=== PATIENT | female | born 1950 | race Caucasian/White ===

== ENCOUNTER 2018-05-12 05:19 | Inpatient (IN) ==
[2018-05-12] MEDS ORDERED: Dexamethasone Inj 20 MG/5 ML Vial IV.PUSH ONE (06:06)
[2018-05-12] MEDS ORDERED: Chlorhexidine 4% Topical 120 APPLIC/120 ML Bottle TOPICAL SCH (06:15)
[2018-05-12] MEDS ORDERED: Clindamycin 900 mg/NS Premix 900 MG/50 ML PIGGYBACK IV.SIG SCH (06:15)
[2018-05-12] MEDS ORDERED: Metoprolol Tartrate 25 MG Tablet PO ONE (06:15)
[2018-05-12] MEDS ORDERED: Chlorhexidine Gluconate 2% 1 Pack (2 Cloths) TOPICAL ONE (06:15)
[2018-05-12] MEDS ORDERED: Sodium Chlor 0.9% Inj 500 ML IV.CONT ONE (06:15)
[2018-05-12] MEDS ORDERED: Sodium Chlor 0.9% Inj 73.07 ML, Ropivacaine 0.5% PF Inj 24.63 ML, Ketorolac Inj 30 MG, ... P-ARTICULR SCH ×5 (06:15)
[2018-05-12] MEDS ORDERED: SODIUM CHLOR 0.9% IV.SIG SCH (06:30)
[2018-05-12] MEDS ORDERED: TRANEXAMIC ACID IV.SIG SCH (06:30)
[2018-05-12] MEDS ORDERED: Vancomycin Inj 1,000 MG in Sodium Chlor 0.9% Inj 250 ML IV.SIG SCH (07:00)
[2018-05-12] MEDS ORDERED: fentaNYL Citrate Inj 100 MCG/2 ML Ampul ONE ×3 (08:44→10:58)
--- NOTE | 2018-05-12 10:27 | P.OP ---
- Preoperative Diagnosis (1) Osteoarthritis of left knee - Postoperative Diagnosis (1) Osteoarthritis of left knee Date of procedure: 05/12/18 Procedure: Left total knee arthroplasty [facility] Surgeon: Naeem Garcia MD Industrial Sales Representative: BATOOL Vargas The surgical procedure was assisted by my Advanced Registered Nurse Practitioner. My UNPAID INTERN presence was necessary throughout this case for the manipulation and positioning of the surgical extremity. My UNPAID INTERN was assisting me throughout the duration of this procedure. The skill set of an Advance Registered Nurse Practitioner was medically necessary to complete this procedure. During the surgical case, the surgical dental assistant was working at the back table and the Advance Registered Nurse Practitioner was directly assisting me. Operation and Findings: IMPLANTS: DePuy Attune: Patella: size 32. Femur, posterior stabilized size 6. Tibia, rotating platform size 5. Tibial insert, rotating platform, posterior stabilized size 7 mm thickness. ESTIMATED BLOOD LOSS: 150 cc TOURNIQUET TIME: 33 minutes at 250 mmHg pressure. JUSTIFICATION FOR PROCEDURE: The patient has end-stage osteoarthritis to the knee. There is an attached conservative measures pathway form in the chart that describes the nonoperative measures that were undertaken prior to consideration of surgical management. The patient understood the risks and benefits of surgical management. See my office notes for further details PROCEDURE: The patient was brought back to the operative theatre. Adequate anesthesia was obtained. The patient received intravenous vancomycin and clindamycin. The lower extremity was prepped and draped in the usual sterile fashion.The leg was exsanguinated, the tourniquet was raised. A standard anterior incision was performed followed by medial parapatellar arthrotomy was performed. End-stage arthritis was identified. Osteotomy of the patella was performed. We drilled holes for the patella. We trialed the patella component. We placed an intramedullary guide into the distal femur. We ultimately resected 11 mm off of the distal femur in 5 degrees of valgus. The remnants of the ACL and PCL were resected. Osteotomy of the proximal tibia was performed, resecting 6 mm off of the medial side. This was done with 3 degrees of posterior slope using an extramedullary guide. The distal end of the guide was placed in the mid aspect of the ankle. The femur was sized, and four chamfer cuts were completed in 3 of external rotation. We then cut the central box in the distal femur to replace the PCL. We resected the remnants of the menisci and removed osteophytes off of the femur and tibia. We then trialed the knee. We punched the tibia for the keel, and then used standard technique to cement in components. Excess cement was removed. We trialed the knee again and the final polyethylene thickness was chosen to provide extension to 0 degrees, and flexion of 140 degrees to gravity. The ligaments were appropriately balanced. Lateral release was necessary to obtain excellent patellofemoral tracking. The tourniquet was released and adequate hemostasis was obtained. An intra- articular injection of a ropivacaine cocktail was injected. The posterior knee was inspected for excess cement, which was removed. The final polyethylene was put into position after thorough irrigation. We then closed deep fascia with a #2 Stratafix followed by skin with 2-0 Vicryl followed by Dermabond dressing. Postop plan is to weight-bear as tolerated. DVT prophylaxis will be performed with SCDs, PASTORA hose, early mobilization, and aspirin.
[2018-05-12] MEDS ORDERED: *morphine SULFATE 4 MG/ML PERIprocedure ONLY ONE ×2 (10:56→11:04)
[2018-05-12] MEDS ORDERED: Morphine Inj 4 MG/ML Vial ONE (10:58)
[2018-05-12] MEDS ORDERED: *Enalaprilat Inj 1.25 MG/ML Vial IV.PUSH ONE (11:17)
[2018-05-12] MEDS ORDERED: Bisacodyl 10 MG Supp RECTAL PRN (12:05)
[2018-05-12] MEDS ORDERED: Morphine Inj 4 MG/ML Vial IV.PUSH PRN (12:05)
[2018-05-12] MEDS ORDERED: Aluminum/Magnesium/Simethacone Susp 30 ML UDC PO PRN (12:05)
[2018-05-12] MEDS ORDERED: Post-op Orders (for Pharmacy) OTHER STA (12:05)
[2018-05-12] MEDS ORDERED: Sod Chloride 0.9% Inj 1,000 ML IV.CONT SCH (12:15)
[2018-05-12] MEDS ORDERED: SODIUM CHLOR 0.9% IV.SIG ONE (12:30)
[2018-05-12] MEDS ORDERED: TRANEXAMIC ACID IV.SIG ONE (12:30)
--- NOTE | 2018-05-12 12:36 | P.DCO ---
- Physical Therapy Physical Therapy: Gait training, Transfer training, bed to chair Knee: Total knee Left Lower Extremity Weight Bearing: Weight bearing as tolerated Left Lower Extremity Range of Motion: Active ROM - Nursing Dressing changes: Do not change dressing Additional instructions: First dressing change in the office - Certification Need for Home Health services: I have seen patient Carol Bustillos on 05/12/18. My clinical findings support the need for the requested home health care services because: Need for Home Health Services: Limited ability to care for self, High risk of falls Homebound Certification: I certify that my clinical findings support that this patient is homebound because: Homebound Certification: Post-op weakness, Unsteady gait/balance
--- NOTE | 2018-05-12 12:51 | XR ---
EXAM DATE: 05/12/2018 12:48 PM EST AGE/SEX: 67 years / Female INDICATIONS: Post op left knee surgery. CLINICAL DATA: This is the patient's initial encounter. Patient reports that signs and symptoms have been present for 1 day and indicates a pain score of 1/10. MEDICAL/SURGICAL HISTORY: None. None. COMPARISON: No prior exams available for comparison. FINDINGS: Postsurgical changes are noted following left knee replacement. Prosthetic components are well seated in satisfactory alignment. Bony structures are intact without evidence of acute fracture. CONCLUSION: Satisfactory postoperative appearance of the left knee following replacement. Electronically signed by: Vinayak Waterman MD 05/12/2018 12:50 PM EST
[2018-05-12] MEDS: Clindamycin 900 mg/NS Premix 900 MG/50 ML PIGGYBACK IV.SIG SCH (16:00)
[2018-05-12] MEDS ORDERED: Morphine Sulfate Inj 2 MG/ML Vial ONE (16:16)
[2018-05-12] MEDS: Senna/Docusate Sodium 8.6/50 MG Tablet PO SCH (20:15)
[2018-05-12] MEDS: Multivitamin/Minerals Therapeutic Tablet PO SCH (20:15)
[2018-05-12] MEDS ORDERED: Zolpidem Tartrate 5 MG Tablet PO PRN (21:00)
[2018-05-13] MEDS: Clindamycin 900 mg/NS Premix 900 MG/50 ML PIGGYBACK IV.SIG SCH ×2 (01:59→08:00)
[2018-05-13 06:40] LABS: Hemoglobin 10.7 gm/dL (11.6-15.3)
--- NOTE | 2018-05-13 07:29 | P.PNOP ---
Subjective Interval history: The patient is resting comfortably in bed in no acute distress. The patient reports minimal pain to the left knee. The patient does want to go home today with home health. Physical Exam Vital signs: Vital Signs 05/12/18 07:49 05/12/18 10:49 05/12/18 11:00 Temperature 98.0 F Pulse Rate 63 71 61 Respiratory Rate 18 15 17 Blood Pressure 154/68 H 173/74 H 177/82 H Pulse Oximetry 100 94 L 05/12/18 11:15 05/12/18 11:30 05/12/18 11:45 Temperature Pulse Rate 61 58 L 58 L Respiratory Rate 15 15 Blood Pressure 183/79 H 154/70 H 141/55 H Pulse Oximetry 97 97 100 05/12/18 12:15 05/12/18 13:36 05/12/18 14:00 Temperature 98.2 F Pulse Rate 66 52 L Respiratory Rate Blood Pressure 148/67 H 139/65 128/62 Pulse Oximetry 05/12/18 15:00 05/12/18 16:35 05/12/18 17:04 Temperature 97.5 F L 98.4 F Pulse Rate 65 58 L 60 Respiratory Rate 16 18 16 Blood Pressure 159/70 H 136/63 119/57 L Pulse Oximetry 100 98 98 05/12/18 20:00 05/13/18 00:00 05/13/18 04:00 Temperature 97.3 F L 97.9 F 97.9 F Pulse Rate 65 61 64 Respiratory Rate 17 16 17 Blood Pressure 95/49 L 98/50 L 103/55 L Pulse Oximetry 97 96 98 Intake & Output 05/12/18 05/13/18 05/13/18 18:59 06:59 18:59 Intake Total 2637.64 / 2637.64 1050 / 1050 Output Total 150 / 150 Balance 2487.64 / 2487.64 1050 / 1050 Weight 76.4 kg 76.4 kg Intake: IV 457.64 / 457.64 1050 / 1050 NS Inj 1,000 ML @ 80 mls/hr IV. 1000 / 1000 CONT .[id number] RINA Rx#:[id number] Cleocin 900 mg/NS Premix 900 mg 100 / 100 50 / 50 In 50 ml @ 100 mls/hr IV.SIG Q8H RINA Rx#:[id number] Cyklokapron Inj 764 MG In NS 107.64 / 107.64 Inj 100 ML @ 200 mls/hr IV.SIG ONCE RINA Rx#:[id number] Vancomycin Inj 1,000 MG In NS 250 / 250 Inj 250 ML @ 250 mls/hr IV.SIG CHEMISTRY MANAGER RINA Rx#:[id number] Oral 1080 / 1080 Anesthesia Amount 1100 / 1100 Output: Urine 0 / 0 Estimated Blood Loss 150 / 150 Other: # Voids 0 2 Date of Last Bowel Movement 05/12/18 # Bowel Movements 0 Narrative: The patient's dressing is clean, dry, and intact. EHL/TA/G are intact. 2+ pedal pulse. The patient's calf is soft and nontender. Sensation is intact to light touch distally. Results - Labs CBC & Chem 7: 05/13/18 05:29 Laboratory Results - last 24 hr 05/12/18 05/13/18 06:45 05:29 Hgb 10.7 L Hct 31.0 L Blood Type A Negative Blood Type Recheck Required Antibody Screen Negative - Imaging Impressions Knee X-Ray 05/12/18 12:05 CONCLUSION: Satisfactory postoperative appearance of the left knee following replacement. - Procedures Left total knee arthroplasty Assessment and Plan - Problem List (1) Status post total knee replacement, left Code(s): Z96.652 - Presence of left artificial knee joint Status: Acute (2) Osteoarthritis of left knee Code(s): M17.12 - Unilateral primary osteoarthritis, left knee Status: Acute - Assessment and Plan POD #1: Left total knee arthroplasty 1. Weightbearing as tolerated on left lower extremity. 2. Aspirin 81 mg twice daily for DVT prophylaxis. 3. Ice as needed for swelling. 4. Stable per ortho for discharge to home health today following her class. 5. The patient will follow up with Dr. Garcia and/or BATOOL Kilpatrick as previously scheduled.
[2018-05-13] MEDS ORDERED: Dexamethasone Inj 20 MG/5 ML Vial IV.PUSH ONE (08:00)
[2018-05-13] MEDS: Multivitamin/Minerals Therapeutic Tablet PO SCH (08:27)
[2018-05-13] MEDS: Senna/Docusate Sodium 8.6/50 MG Tablet PO SCH (08:27)
[2018-05-13 09:18] VITALS: BP 117/56; PULSE 66; RESP 18; TEMP 98.4; O2SAT 100
== END 2018-05-13 11:18 | disposition home health service (06) ==
LOC: HSDI 05:19 → N06 16:44
PROVIDERS: ADMIT Orthopaedic Surgery; ATTEND Orthopaedic Surgery